=== PATIENT | female | born 1965 | race Caucasian/White ===

== ENCOUNTER 2020-04-05 01:31 | Outpatient (CLI) | payer OTHER, SELFPAY ==
--- NOTE | 2020-04-05 | DI.MAMMO_ITS ---
EXAM: MAMMO SCREENING CLINICAL HISTORY: SCREENING, [id number] TECHNIQUE: Mammograms were interpreted according to the usual protocol including computer analysis w [employer] CAD system, tomosynthesis and C-view imaging. COMPARISON: 2017 FINDINGS: The breasts are composed of heterogeneously dense fibroglandular densities, Breast Density category C . No suspicious masses or suspicious microcalcifications are seen. No skin thickening or abnormal axillary lymph nodes are seen. There has been no significant change from prior exams. IMPRESSION: BI-RADS Category 1, Negative mammogram. Yearly screening mammography is recommended. Breast Density Category C, heterogeneously Dense. The mammogram demonstrates the patient's breast tissue is dense. Dense breast tissue is very common a nd is not abnormal but dense breast tissue can make it harder to find cancer on a mammogram. Also, de nse breast tissue may increase breast cancer risk. This information about the result of the mammogram report was provided to the patient to raise their awareness. Use this report when you speak with the patient about their risks for breast cancer, which includes their family history. At that time, you may recommend additional screening tests (Ultrasound or MRI) as they might be useful based on their r isk. A negative radiographic report should not delay biopsy if a dominant or clinically suspicious mass is present. Up to ten percent of cancers are not identified on mammography. A negative report may reinforce clinical impression. Adenosis and dense breasts may obscure an underlying neoplasm. False positive reports average 6 to 10%.
== END 2020-04-05 01:51 ==
PROVIDERS: Visit Provider Internal Medicine
DX: Z12.31 Encounter for screening mammogram for malignant neoplasm of breast (principal)
CPT/HCPCS: 77063; 77067

== ENCOUNTER 2021-02-24 09:57 | Emergency (ER) | payer OTHER, SELFPAY ==
--- NOTE | 2021-02-24 10:00 | RT.EKG_ITS ---
APPROVED REPORT Exam: Resting ECG Reason for Exam: chest pain Patient Location: E HR:64 bpm ECG Measurements Heart Rate 64 AXIS IA 147 P 64 QRSd 68 QRS 43 QT 420 T 37 QTc 432 Conclusion Sinus rhythm...normal P axis, V-rate 60- 99 Probable left atrial enlargement...P >50mS, <-0.10mV V1 Low voltage, precordial leads...precordial leads <1.0mV
[2021-02-24 10:02] VITALS: BP 156/93; PULSE 59; RESP 18; TEMP 36.6; O2SAT 100
--- NOTE | 2021-02-24 10:15 | DI.RAD_ITS ---
Exam(s) XR PORTABLE CHEST AP EXAM: XR PORTABLE CHEST AP CLINICAL HISTORY: chest pain, PUI TECHNIQUE: 2D digital imaging was performed. COMPARISON: No exams were available for comparison FINDINGS: LUNGS: Question basilar opacities.. No pleural abnormality seen. HEART: Normal. MEDIASTINUM: Normal. BONES: Unremarkable. IMPRESSION: Question of basilar infiltrates. DATA REPOSITORY: RADIATION DOSE DELIVERED:
--- NOTE | 2021-02-24 10:40 | ED.GENADUL_ITS ---
Discharge Plan Disposition Patient Disposition: HOME Condition: Stable Discharge Details Clinical Impression: Pneumonia Primary Care Provider: None,None ED Provider: Allan Wolf Home Meds and New Rx's Prescriptions: New doxycycline hyclate 100 mg capsule 100 mg PO BID Qty: 9 RF: 0 Continued esterified estrogens 0.3 mg Tablet 0.3 mg PO DAILY RF: 0 Discharge Instructions Instructions: Pneumonia (ED), COVID-19 (Coronavirus Disease 2019) (ED), Instructions for Self Monitoring Oxygen Saturation Additional Instructions: Chest x-ray with performed today and is concerning for mild developing multifocal pneumonia. This may be caused by a bacteria or virus including covid. A covid test was performed today and results are pending. You may have COVID- 19. Please maintain home isolation until results are available. You may log into your [employer] portal to check for result. Results should be available within a couple days. Please drink plenty of fluids to stay hydrated. Allow for plenty of rest. Take the antibiotic as prescribed. Your initial dose was given today in the emergency department. Your next dose should be this evening. You are given a finger pulse oximeter today. Monitor your pulse ox according to instructions. Please return to the emergency department if your oxygen drops below 90% consistently. Please contact your primary care physician to arrange follow-up. Call on Friday. Return to the ER immediately for any worsening or new concerning symptoms. Medical Decision Making [id number] --55-year-old female here with cough and chills, rhinorrhea and sore throat as well as headache right-sided pleuritic chest discomfort. Patient is satura ting well in no respiratory distress. Hemodynamically stable. Concern for community-acquired pneumonia versus viral respiratory illness including Covid. I will send Covid test and obtain chest x-ray. Consider pulmonary embolism: Low risk by Wells criteria, will obtain D-dimer. Screening EKG with performed by nursing reviewed and interpreted by me: Nondiagnostic, please see report. Patient was provided naproxen, as prescribed for home use, for discomfort. 1200 --labs reviewed and nondiagnostic. D-dimer negative. Chest x-ray reviewed and interpreted by radiology: Patchy mild bibasilar o pacities, may represent developing multifocal pneumonia. Hyperexpansion of the lungs can be seen with COPD. Unclear if this is COVID-19 or bacterial or other viral process. Plan to treat with doxycycline to cover for community-acquired pneumonia. Covid test is pending. I will have her maintain home isolation and follow-up with primary care physician. Usual customary discharge instructions reviewed the patient. HPI General Mode of arrival: ambulatory . Date/Time Provider Initiated Documentation: 02/24/21 09:59 . Limitations to Documentation: no limitations . Information obtained by: patient . HPI Narrative: 55-year-old female presents with chief complaint of respiratory illness. Patient notes she has had chills and cough since last night. Feels achy. Symptoms are severe. No modifiers. She does have associated moderate headache. She also notes intermittent right- sided chest discomfort with deep breathing. No leg spine or calf pain. Patient is fully vaccinated against Covid with second shot given in May. She has not received booster. Related Data Home Medications Medication Instructions Recorded Confirmed doxycycline hyclate 100 mg PO BID #9 cap 02/24/21 esterified estrogens 0.3 mg PO DAILY 02/24/21 02/24/21 Previous Rx's Medication Instructions Recorded doxycycline hyclate 100 mg PO BID #9 cap 02/24/21 Allergies Allergy/AdvReac Type Severity Reaction Status Date / Time pregabalin [From Lyrica] AdvReac Psychosis Unverified 02/24/21 10:06 General Stated Complaint: RespSymp BETITO: 3 Review of Systems All systems reviewed & are unremarkable except as noted in HPI and below Constitutional Constitutional: Denies fever(s) Cardiovascular Cardiovascular: Reports as per HPI Respiratory Respiratory: Reports as per HPI PFSH All Active Problems (Updated 02/24/21 @ 12:04 by Allan Wolf MD) Pneumonia (Acute) Social History Smoking/Tobacco Use Status: Never Smoking risk assessment performed?: Yes Alcohol Intake: current Alcohol Intake frequency: 0-2 drinks per day Drug use: Never Substance use type: does not use Do you feel safe at home: Yes Do you feel safe in your relationship?: Yes Exam Const General: cooperative and no acute distress HENMT Mouth: moist mucous membranes Eyes Conjunctivae: normal conjunctivae Sclera: normal sclerae Neck Neck: trachea midline and supple Resp Effort & Inspection: normal respiratory effort, able to speak in complete sentences, cough and not tachypneic Auscultation: clear to auscultation bilaterally, no rales, no rhonchi and no wheezes Cardio Rate: regular rate and not tachycardic Rhythm: regular rhythm GI Palpation: soft, not firm, no guarding, no masses, not rigid and nontender Skin General skin exam: no rashes or lesions noted Neuro General: patient alert, patient awake, patient oriented x3 and tone normal Extrem General: no calf tenderness and no edema Psych Appearance: grossly normal Mental Status: mental status grossly normal Speech and Movement: speech and movement normal Course Vital Signs Vital signs: Vital Signs Temperature 36.6 C 02/24/21 10:02 Pulse 59 L 02/24/21 10:02 Respiratory Rate 18 02/24/21 10:02 Blood Pressure 156/93 H 02/24/21 10:02 Pulse Oximetry 100 02/24/21 10:02 Temperature 36.6 C 02/24/21 10:02 Temperature Source Temporal Artery Scan 02/24/21 10:02 Pulse 59 L 02/24/21 10:02 Respiratory Rate 18 02/24/21 10:02 Respiratory Effort Non-Labored 02/24/21 10:07 Blood Pressure 156/93 H 02/24/21 10:02 Blood Pressure Position Sitting 02/24/21 10:02 Pulse Oximetry 100 02/24/21 10:02 Oxygen Delivery Method Room Air 02/24/21 10:02 Oxygen Flow Rate 0 02/24/21 10:02 Lab/Test Results Lab/Test Results: 02/24/21 10:15 Tonsil - Not Specified Group A Streptococcus Culture - Pending POC Strep Test-CARLOS(Rapid) Start: 02/24/21 10:22 Freq: Status: Active Protocol: Document 02/24/21 10:28 TB (Rec: 02/24/21 10:28 TB [id number]) Strep test-CARLOS(Rapid)-POC POC-Strep test-CARLOS (Rapid) Negative POC-Strep test-CARLOS (Rapid) Negative
[2021-02-24] MEDS: Naproxen 250 MG TAB (10:46)
[2021-02-24 10:58] LABS: ALT 14 U/L (14-59); AST 11 U/L (15-37); Albumin 3.8 g/dL (3.4-5.0); Alkaline Phosphatase 67 U/L (46-116); Anion Gap 6.9 mmol/L (3-11); BUN 18 mg/dL (7-18); Bilirubin, Total 0.7 mg/dL (0.2-1.0); CO2 27.1 mmol/L (21.0-32.0); CREATININE 0.8 mg/dL (0.55-1.02); Calcium 8.7 mg/dL (8.5-10.1); Chloride 107 mmol/L (98-107); Glucose 99 mg/dL (74-106); Potassium 3.9 mmol/L (3.5-5.1); Sodium 141 mmol/L (136-145); Troponin I < 50 ng/L (<or=60)
[2021-02-24 11:01] LABS: Abs Immature Grans 0.01 10^3/uL (0.0-0.06); Absolute Basophil Count 0.02 10^3/uL (0.0-0.2); Absolute Eosinophil Count 0.19 10^3/uL (0.0-0.7); Absolute Lymphocyte Count 1.26 10^3/uL (1.2-3.4); Absolute Monocyte Count 0.57 10^3/uL (0.1-0.8); Absolute Neutrophil Count 4.97 10^3/uL (1.2-6.7); Basophils % 0.3; Eosinophils % 2.7; HCT 41.5 % (36.0-46.0); HGB 13.1 g/dL (11.2-15.7); Immature Grans % 0.1; Lymphocytes % 17.9; MCH 28.9 pg (27.0-33.0); MCHC 31.6 % (32.0-36.0); MCV 91.4 fL (80-95); Monocytes % 8.1; Neutrophils % 70.9; Nucleated RBC 0 %; Platelet Count 216 10^3/uL (130-400); RBC 4.54 10^6/uL (3.93-5.22); RDW 13.2 % (11.7-14.6); RDW-SD 44.4 fL; WBC 7.02 10^3/uL (4.4-10.8)
[2021-02-24 11:33] LABS: D-Dimer 156 ng/mlFEU (<500)
--- NOTE | 2021-02-24 11:46 | DI.VRAD_ITS ---
PROCEDURE INFORMATION: Exam: XR Chest Exam date and time: 02/24/2021 10:29 AM Age: 55 years old Clinical indication: Other: Chest pain, piu TECHNIQUE: Imaging protocol: XR of the chest. Views: 1 view. COMPARISON: No relevant prior studies available. FINDINGS: Lungs: Lungs are hyperinflated. Subtle patchy bibasilar opacities. Pleural spaces: No pleural effusion or pneumothorax. Heart/Mediastinum: Heart size is normal. Bones/joints: Mild degenerative changes of the shoulders and spine without acute osseous findings. IMPRESSION: 1. Patchy mild bibasilar opacities, may represent developing multifocal pneumonia. 2. Hyperexpansion the lungs can be seen with COPD. Dictated and Authenticated by: Zahraa Pascal MD. Ordering:CATALINO Lemus MD
[2021-02-24] MEDS: Doxycycline Hyclate 100 MG CAP PO (12:09)
[2021-02-24 12:10] VITALS: BP 136/82; PULSE 59; RESP 18; O2SAT 100
[2021-02-25 10:48] LABS: COVID-19 RT-PCR UVMMC Result Negative (Negative)
--- NOTE | 2021-02-26 17:34 | NUR.NOTE ---
negative covid result relayed to pt's via phone. Nursing Note:
== END 2021-02-24 12:22 | disposition home or self-care (01) ==
PROVIDERS: Emergency Provider Student in an Organized Health Care Education/Training Program
DX: J18.9 Pneumonia, unspecified organism (principal); R07.9 Chest pain, unspecified; R51.9 Headache, unspecified
CPT/HCPCS: 36415; 80053; 87880; 93005; 99284; U0003; 71045; 84484; 85025; 85379; 87081; 93010

== ENCOUNTER 2021-03-17 13:45 | Emergency (ER) | payer SELFPAY ==
[2021-03-17 14:07] VITALS: BP 135/78; PULSE 60; RESP 16; TEMP 36.6; O2SAT 99
--- NOTE | 2021-03-17 14:30 | DI.US_ITS ---
Exam(s) US LOWER EXTREMITY VENOUS RT EXAM: US LOWER EXTREMITY VENOUS RT CLINICAL HISTORY: R leg swelling, pain, + Covid. TECHNIQUE: Lower extremity venous ultrasound performed using grayscale, color-flow, and spectral Do ppler analysis. COMPARISON: No exams were available for comparison FINDINGS: The common femoral, femoral and popliteal veins demonstrate normal compressibility, augmentation, and color Doppler. The posterior tibial veins are patent. No saphenous vein thrombosis or other superfi cial venous thrombosis is seen. No hematoma or Townsend's cyst is seen. IMPRESSION: Negative lower extremity ultrasound. No evidence of DVT. DATA REPOSITORY:
--- NOTE | 2021-03-17 14:35 | ED.GENADUL_ITS ---
Discharge Plan Disposition Patient Disposition: HOME Condition: Improving Discharge Details Clinical Impression: Strain of calf muscle Primary Care Provider: None,None ED Provider: Tejas Johnson Home Meds and New Rx's Prescriptions: Continued esterified estrogens 0.3 mg Tablet 0.3 mg PO DAILY RF: 0 acetaminophen [Acetaminophen Extra Strength] 500 mg Tablet 1,000 mg PO QID PRNRF: 0 Discharge Instructions Instructions: Muscle Strain (ED) Additional Instructions: Home to rest this evening. May apply warm and moist heat to area speed healing. May use Tylenol and ibuprofen as needed for pain or discomfort. Return if you develop chest pain, difficulty breathing, increasing leg discomfort, or any other acute concerns. Medical Decision Making 55-year-old female presents from home. She was diagnosed with pneumonia and subsequently COVID-19 towards the third week of February. She had persistent cough and over the past few days noticed right lower extremity pain and mild swelling. [facility] On review of systems patient will note some discomfort with deep inspiration, particularly on the left side of the chest. She arrives to the ER with reassuring vital signs. Her right leg does note 1 cm greater diameter around the calf than left. Patient's differential diagnosis includes DVT, PE, persistent COVID-19 symptoms. IV access established and patient referred for laboratory testing and right lower extremity ultrasound. The ultrasound does not show evidence of DVT. Laboratories: White blood cell count 6, hematocrit 43, platelets 229. D-dimer 181. Sodium 142 potassium 4.2, chloride 106, bicarb 27, BUN 17, creatinine 0.8. HPI General Mode of arrival: ambulatory . Date/Time Provider Initiated Documentation: 03/17/21 13:58 . Limitations to Documentation: no limitations . History of Present Illness 55 year old F presents to the emergency department with the chief complaint of Right leg swelling and minimal pain,persistent cough , covid, described as mild, and is localized to the right and lower extremity. Patient reports no radiation. Patient started experiencing this day(s) and it has been constant. No relieving factors improve symptom(s), No exacerbating factors reported . Patient did receive the following treatments prior to arrival, none Related Data Home Medications Medication Instructions Recorded Confirmed esterified estrogens 0.3 mg PO DAILY 02/24/21 03/17/21 acetaminophen [Acetaminophen Extra 1,000 mg PO QID PRN 03/17/21 03/17/21 Strength] Allergies Allergy/AdvReac Type Severity Reaction Status Date / Time pregabalin [From Lyrica] AdvReac Psychosis Unverified 03/17/21 14:17 General Stated Complaint: Vascular BETITO: 3 Review of Systems Narrative: No fever. Has persistent cough. Minimal left-sided chest discomfort with deep inspiration. Sputum production. Eating and drinking within normal limits. 8 systems reviewed and otherwise negative PFSH All Active Problems (Updated 03/17/21 @ 16:08 by Tejas Johnson MD) Pneumonia (Acute) Strain of calf muscle (Acute) Social History Smoking/Tobacco Use Status: Former Tobacco Use Smoking risk assessment performed?: Yes Alcohol Intake: current Alcohol Intake frequency: 0-2 drinks per day Drug use: Never Substance use type: does not use Do you feel safe at home: Yes Do you feel safe in your relationship?: Yes Exam Narrative Exam Narrative: GEN: awake, alert, oriented 3. Pleasant, well groomed, interactive. HEAD: Normocephalic, atraumatic ENT: Mucous membranes moist, oropharynx unremarkable, External ear exam unremarkable EYES: PERRL, EOMI NECK: Full ROM, no FRANCHESCA, no menigismus CHEST/RESP: Nontender, clear to auscultation bilateral, no wheeze/rhonchi/rales CARDIOVASCULAR: RRR, no murmur, rub janelle. 2+ Rad pulse bilateral ABDOMEN: Soft, nontender, no mass. +Bowel sounds EXT: Full ROM, trace pain right calf posteriorly. 1 cm greater diameter of right calf versus left Neuro: Grossly normal neurologic exam, conversant, interactive. Psych: Speech fluent, thoughts congruent, affect normal Course Vital Signs Vital signs: Vital Signs Temperature 36.6 C 03/17/21 14:07 Pulse 60 03/17/21 14:07 Respiratory Rate 16 03/17/21 14:07 Blood Pressure 135/78 03/17/21 14:07 Pulse Oximetry 99 03/17/21 14:07 Temperature 36.6 C 03/17/21 14:07 Temperature Source Temporal Artery Scan 03/17/21 14:07 Pulse 60 03/17/21 14:07 Respiratory Rate 16 03/17/21 14:07 Respiratory Effort Non-Labored 03/17/21 14:15 Blood Pressure 135/78 03/17/21 14:07 Blood Pressure Position Sitting 03/17/21 14:07 Pulse Oximetry 99 03/17/21 14:07 Oxygen Delivery Method Room Air 03/17/21 14:07 Oxygen Flow Rate 0 03/17/21 14:07 Pain Level 0 03/17/21 14:07 PAWSS Have you Been Recently Intoxicated or Drunk Within the Last 30 days?: No Have you Ever Experienced Previous Episodes of Alcohol Withdrawal?: No Have you ever Experienced Withdrawal Seizures?: No Have you ever Experienced Delirium Tremens(DT)s?: No Have you ever undergone Alcohol Rehabilitation Treatment (i.e, inpt ot outpatient treatment programs)?: No Have you ever Experienced Blackouts?: No Have you ever Combined Alcohol with other Downers within the last 90 days?: No Have you ever Combined Alcohol with any other Substance of Abuse during the last 90 days?: No Positive Blood Alcohol level on Presentation? [PCS.BAL]: No Evidence of Increased Autonomic Activity (i.e. HR>120, tremor, sweating, agitation, nausea)?: No Result: 0
--- NOTE | 2021-03-17 15:27 | DI.VRAD_ITS ---
PROCEDURE INFORMATION: Exam: US Duplex Right Lower Extremity Veins, Limited Exam date and time: 03/17/2021 2:35 PM Age: 55 years old Clinical indication: Other: RT leg heaviness; Patient HX: Covid + TECHNIQUE: Imaging protocol: Real-time Duplex ultrasound of the Right Lower Extremity with 2-D leary scale, color Doppler flow and spectral waveform analysis with image documentation. Limited exam was focused on the right lower extremity veins. COMPARISON: No relevant images were readily available for comparison purposes. FINDINGS: Vasculature: No evidence of thrombus. Soft tissues: Unremarkable. IMPRESSION: No evidence of deep vein thrombosis. Dictated and Authenticated by: Brady Calderon MD. Ordering:RYAN Lazaro MD
[2021-03-17 15:32] LABS: Abs Immature Grans 0.02 10^3/uL (0.0-0.06); Absolute Basophil Count 0.02 10^3/uL (0.0-0.2); Absolute Eosinophil Count 0.18 10^3/uL (0.0-0.7); Absolute Lymphocyte Count 2.18 10^3/uL (1.2-3.4); Absolute Monocyte Count 0.48 10^3/uL (0.1-0.8); Absolute Neutrophil Count 3.16 10^3/uL (1.2-6.7); Basophils % 0.3; HCT 43.6 % (36.0-46.0); Immature Grans % 0.3; Lymphocytes % 36.1; MCH 28.7 pg (27.0-33.0); MCHC 32.1 % (32.0-36.0); MCV 89.3 fL (80-95); MPV 10.6 fL (8.0-11.0); Monocytes % 7.9; Neutrophils % 52.4; Nucleated RBC 0 %; Platelet Count 229 10^3/uL (130-400); RBC 4.88 10^6/uL (3.93-5.22); RDW 12.9 % (11.7-14.6); RDW-SD 42.4 fL; WBC 6.04 10^3/uL (4.4-10.8)
[2021-03-17 15:53] LABS: ALT 17 U/L (14-59); AST 14 U/L (15-37); Alkaline Phosphatase 73 U/L (46-116); Anion Gap 8.4 mmol/L (3-11); BUN 17 mg/dL (7-18); Bilirubin, Total 0.5 mg/dL (0.2-1.0); CO2 27.6 mmol/L (21.0-32.0); CREATININE 0.8 mg/dL (0.55-1.02); Calcium 9.1 mg/dL (8.5-10.1); Chloride 106 mmol/L (98-107); Glucose 85 mg/dL (74-106); Potassium 4.2 mmol/L (3.5-5.1); Sodium 142 mmol/L (136-145); Total Protein 7.5 g/dL (6.4-8.2)
[2021-03-17 16:01] LABS: D-Dimer 181 ng/mlFEU (<500)
[2021-03-17 16:17] VITALS: BP 135/78; PULSE 70; RESP 16; O2SAT 100
== END 2021-03-17 16:23 | disposition home or self-care (01) ==
PROVIDERS: Emergency Provider Emergency Medicine
DX: S86.811A Strain of other muscle(s) and tendon(s) at lower leg level, right leg, initial encounter (principal); M79.604 Pain in right leg; X58.XXXA Exposure to other specified factors, initial encounter; U07.1 COVID-19; R22.41 Localized swelling, mass and lump, right lower limb
CPT/HCPCS: 80053; 99284; 85025; 85379; 93971; 99283

== ENCOUNTER 2021-04-12 01:48 | Outpatient (CLI) | payer OTHER, SELFPAY ==
--- NOTE | 2021-04-12 10:00 | DI.MAMMO_ITS ---
Exam(s) MAMMO SCREENING EXAM: MAMMO SCREENING CLINICAL HISTORY: SCREENING, [id number] TECHNIQUE: Mammograms were interpreted according to the usual protocol including computer analysis w [employer] CAD system, tomosynthesis and C-view imaging. COMPARISON: FINDINGS: The breasts are heterogeneously dense. No dominant mass or clumped microcalcification is identified in either breast. The current examination is compared with previous studies including March 2020 a nd there has been no gross interval change in appearance in comparison with prior examinations. IMPRESSION: No specific evidence of malignancy at this time. Routine screening examinations are suggested at yea rly intervals in this age group according to the ACS ACR guidelines. BI-RADS Category 1 - Negative Breast Density - Category C - Heterogeneously dense
== END 2021-04-12 02:08 ==
PROVIDERS: Visit Provider Internal Medicine
DX: Z12.31 Encounter for screening mammogram for malignant neoplasm of breast (principal); R92.8 Other abnormal and inconclusive findings on diagnostic imaging of breast
CPT/HCPCS: 77063; 77067

== ENCOUNTER 2023-10-11 19:06 | Emergency (ER) | payer OTHER, SELFPAY ==
[2023-10-11 19:14] VITALS: BP 141/90; PULSE 89; RESP 14; TEMP 36.7; O2SAT 97
--- NOTE | 2023-10-11 20:30 | DI.CT_ITS ---
Exam(s) CT ABDOMEN PELVIS W EXAM: CT ABDOMEN PELVIS W CLINICAL HISTORY: abd pain, periumblical TTP with vol guarding. TECHNIQUE: Imaging Protocol: Axial computed tomography images with coronal and sagittal reformatted images were created and reviewed CONTRAST MATERIAL: Intravenous: Omnipaque-350 100cc Oral: None COMPARISON: No exams were available for comparison FINDINGS: VISUALIZED LUNG BASES: No nodules nor pleural effusions evident. ABDOMEN: There is no ascites. LIVER: There are 3 small focal hypodensities all measuring approximately 5 mm, benign-appearing and e ither small cysts or hemangiomas. There are no dilated intrahepatic ducts. GALLBLADDER/BILIARY: No obvious gallbladder pathology. CBD is not dilated. PANCREAS: No evidence of pancreatic mass nor dilatation of the pancreatic duct. SPLEEN: Spleen is not enlarged. No obvious intrasplenic lesions. Splenic and portal veins are paten t. ADRENALS: There are no significant adrenal masses. KIDNEYS:No cysts evident. No solid renal masses. No calculi nor hydronephrosis.. ABDOMINAL AORTA: Calcified but not enlarged. Common iliac arteries also calcified but not enlarged. LYMPH NODES:There is no retroperitoneal nor paraaortic adenopathy. ABDOMINAL WALL: No evidence of significant anterior abdominal wall nor inguinal hernia. GI: Moderate amount of retained fecal material in the colon and there is significant distension of th e rectum to 7.5 cm and circumferential cathy rectal fat stranding noted. PELVIS: GI: No evidence of appendicitis.No evidence of sigmoid diverticulitis. LYMPH NODES: There is no intrapelvic nor inguinal adenopathy. REPRODUCTIVE: Normal size uterus. No abnormal adnexal masses. URINARY BLADDER: No calculi nor obvious masses evident OSSEOUS: No fractures and no significant osseous lesions. IMPRESSION: 1. There is a prominent amount of fecal material in the distal sigmoid and rectum with the rectum dis tended to 7.5 cm. There is also perirectal fat stranding which raises concern for stercoral proctiti s. Abundant fecal material throughout the colon above this level is probably related to the findings at the rectum level. No evidence of significant diverticular disease. No evidence of appendicitis. 2. No evidence of small-bowel obstruction, free air, nor abscess. 3. 4. RADIATION DOSE DELIVERED: Total DLP DATA REPOSITORY: All CT scans at this facility are submitted to the National Radiology Data Registry (NRDR) Dose Index Registry (DIR) with the [employer] (ACR). RADIATION OPTIMIZATION: All CT scans at this facility use at least one of these dose optimization te chniques: automated exposure control; mA and/or kV adjustment per patient size (includes targeted exa ms where dose is matched to clinical indication); or iterative reconstruction.
--- NOTE | 2023-10-11 20:45 | W.ED.GENAD ---
Discharge Plan Disposition Patient Disposition: Home Condition: Good Discharge Details Clinical Impression: Constipation Primary Care Provider: [facility] ED Provider: Sherine Swartz Home Meds and New Rx's Prescriptions: Continued acetaminophen [Acetaminophen Extra Strength] 500 mg Tablet 1,000 mg PO QID PRN naproxen 500 mg tablet 500 mg PO BID cyanocobalamin (vitamin B-12) [Vitamin B-12] 1,000 mcg tablet 1,000 mcg PO QDAY vitamin E 268 mg (400 unit) capsule 268 mg PO DAILY cholecalciferol (vitamin D3) [Vitamin D3] 50 mcg (2,000 unit) capsule 2,000 unit PO DAILY thiamine HCl (vitamin B1) 100 mg tablet 100 mg PO DAILY terbinafine HCl 250 mg tablet 250 mg PO DAILY triamcinolone acetonide 0.1 % ointment 1 applic TOPICAL DAILY bupropion HCl 300 mg tablet extended release 24 hr 150 mg PO DAILY dimethyl fumarate 120 mg capsule,delayed release(DR/EC) 120 mg PO DAILY Discontinued esterified estrogens 0.3 mg Tablet 0.3 mg PO DAILY Wegovy 2.4 mg/0.75 mL pen injector 0.25 mg subcut QWEEK Discharge Instructions Instructions: Constipation, Adult ED Additional Instructions: Stop taking wegovy as this can worsen constipation. Call your primary care doctor on Friday to schedule an appointment within the next 72 hours to followup on your visit here and to discuss a bowel regimen for you. Until you see your primary care doctor take the following over the counter medications: -Miralax 17g once a day -Magesium citrate once a day (follow the directions on the bottle) -Fleet saline enema once a day if needed Return to the emergency department for new or worsening symptoms including fever, rectal bleeding, worsening pain, or if you have any other concerns. Referrals: [facility] [Primary Care Provider] - [facility] General Mode of arrival: ambulatory. Date/Time Provider Initiated Documentation: 10/11/23 19:14. Limitations to Documentation: no limitations. Information obtained by: patient. HPI Narrative: 58yo F with MS presenting with abdominal pain and constipation. Last BM 5 days ago, normal. No BM since then; has tried colace, miralax x 2, and a rectal suppository without effect. Abdominal pain started 2 days ago and has been worsening, diffuse, crampy. Nausea especially when straining to have a bowel movement, no vomiting. Otherwise in her usual state of health with no fevers, chills, rash, or other concerns. Related Data Home Medications ?Medication ?Instructions ?Recorded ?Confirmed acetaminophen 500 mg tablet 1,000 mg PO QID PRN 03/17/21 10/11/23 (Acetaminophen Extra Strength) bupropion HCl 300 mg 24 hr tablet, 150 mg PO DAILY 10/11/23 10/11/23 extended release cholecalciferol (vitamin D3) 50 2,000 unit PO DAILY 10/11/23 10/11/23 mcg (2,000 unit) capsule (Vitamin D3) cyanocobalamin (vitamin B-12) 1,000 mcg PO QDAY 10/11/23 10/11/23 1,000 mcg tablet (Vitamin B-12) dimethyl fumarate 120 mg 120 mg PO DAILY 10/11/23 10/11/23 capsule,delayed release naproxen 500 mg tablet 500 mg PO BID 10/11/23 10/11/23 terbinafine HCl 250 mg tablet 250 mg PO DAILY 10/11/23 10/11/23 thiamine HCl (vitamin B1) 100 mg 100 mg PO DAILY 10/11/23 10/11/23 tablet triamcinolone acetonide 0.1 % 1 applic topical DAILY 10/11/23 10/11/23 topical ointment vitamin E 268 mg (400 unit) capsule 268 mg PO DAILY 10/11/23 10/11/23 Allergies Allergy/AdvReac Type Severity Reaction Status Date / Time pregabalin (From Lyrica) AdvReac Psychosis Unverified 10/11/23 19:17 General Stated Complaint: Abd Prob BETITO: 3 Review of Systems Narrative: see hpi Exam Narrative Exam Narrative: General: Alert, well appearing, thin, in no acute distress. Head: Normocephalic, atraumatic Neck: Trachea midline, ?Neck supple. ENT: ?MMM.? Cardiac: ?No cyanosis. Resp: No respiratory distress. Speaking in full sentences. . Abd: ?Soft, non-distended, TTP in periumbilical region with voluntary guarding. No rebound tenderness. : ?No suprapubic tenderness. Extremities: ?No deformities.? No peripheral edema. Neurologic: GCS 15. ? Moves all extremities freely against gravity Course Vital Signs Vital signs: Vital Signs Temperature 36.7 C 10/11/23 19:14 Pulse 89 10/11/23 19:14 Respiratory Rate 14 10/11/23 19:14 Blood Pressure 141/90 H 10/11/23 19:14 Pulse Oximetry 97 10/11/23 19:14 Temperature 36.7 C 10/11/23 19:14 Temperature Source Skin 10/11/23 19:14 Pulse 89 10/11/23 19:14 Respiratory Rate 14 10/11/23 19:14 Respiratory Effort Normal, Non-Labored 10/11/23 20:12 Blood Pressure 141/90 H 10/11/23 19:14 Blood Pressure Position Sitting 10/11/23 19:14 Pulse Oximetry 97 10/11/23 19:14 Oxygen Delivery Method Room Air 10/11/23 19:14 Oxygen Flow Rate 0 10/11/23 19:14 Pain Level 4 10/11/23 19:14 Medical Decision Making 58yo F with MS presenting with abdominal pain and constipation. Last BM 5 days ago, normal. Abdominal pain started 2 days ago and has been worsening, diffuse, crampy. Nausea especially when straining to have a bowel movement, no vomiting. Vital signs reassuring on arrival, on exam she does have significant abdominal tenderness with voluntary guarding. Given this, will evaluate with CT . Zofran for nausea, additional miralax here. Labs reviewed as below, CBC reassuring with no leukocytosis or anemia, CMP with no significant abnormalities, lactate normal, TSH normal. CT independently reviewed, large stool burden with clear obstruction on my view, radiology read below. Some perirectal fat stranding without wall thickening noted, clinically less likely sterocoral colitis with well appearance and reassuring vitals signs/WBC/lactate. Findings discussed with patient and I recommended manual disimpaction; patient is very averse to this. She is willing to accept an enema at this time, initially requests to perform it herself (she has had never had one) but does agree to allow nursing to perform/assist. Fleet enema given, large volume of stool obtained. She does feel that there is still some present, continues to refuse manual disimpaction but is willing to have another enema. Will give soap-suds enema this time. Given significant volume of stool already obtained, would discharge home on assertive bowel regimen after enema even if not much more output. Discharge instructions written. Awaiting enema from pharamcy. On reassessment patient reports that she is feeling much better, no more abdominal pain. Signed out to oncoming physician, plan to discharge home if no complications from enema. A follow-on note will only be written if there is a change in patient status or condition. Imaging Data Radiologic Study: Imaging: CT Scan Radiologist's impression: IMPRESSION: Moderate retained fecal material in the cecum, ascending colon, and transverse colon. Descending and sigmoid colon largely well evacuated. Prominent retained fecal material in the distal sigmoid colon and rectum with distension of the rectum to 7.7 cm x 6.3 cm maximum axial dimension. Constipation suggested. Clinical correlation recommended. Perirectal fat stranding raises concern for superimposed acute stercoral proctitis although no definite rectal wall thickening is seen. Lab Data Lab results reviewed: Yes I reviewed the patient's lab results. Labs: Laboratory Tests Range/Units 10/11/23 21:16 WBC (4.4-10.8) 10^3/uL 5.95 RBC (3.93-5.22) 10^6/uL 4.81 Hgb (11.2-15.7) g/dL 13.8 Hct (36.0-46.0) % 42.3 MCV (80-95) fL 88 MCH (27.0-33.0) pg 28.7 MCHC (32.0-36.0) % 32.6 RDW (11.7-14.6) % 12.6 Plt Count (130-400) 10^3/uL 196 MPV (8.0-11.0) fL 10.7 Immature Gran % % 0.3 Neutrophils % % 85.0 Lymphocytes % % 8.2 Monocytes % % 5.5 Eosinophils % % 0.7 Basophils % % 0.3 Nucleated RBC % (0.0-0.3) % 0.0 Absolute Neutrophils (1.2-6.7) 10^3/uL 5.05 Absolute Lymphocytes (1.2-3.4) 10^3/uL 0.49 L Absolute Monocytes (0.1-0.8) 10^3/uL 0.33 Absolute Eosinophils (0.0-0.7) 10^3/uL 0.04 Absolute Basophils (0.0-0.2) 10^3/uL 0.02 VBG Lactate (0.6-1.4) mmol/L 0.7 Sodium (136-145) mmol/L 142 Potassium (3.5-5.1) mmol/L 4.4 Chloride (98-107) mmol/L 106 Carbon Dioxide (21.0-32.0) mmol/L 27.5 Anion Gap (3-11) mmol/L 8.5 BUN (7-18) mg/dL 16 Creatinine (0.55-1.02) mg/dL 1.0 Est GFR (CKD-EPI 2020) (mL/min/1.73m2) 66.12 Glucose (74-106) mg/dL 98 Calcium (8.5-10.1) mg/dL 9.5 Total Bilirubin (0.2-1.0) mg/dL 0.94 AST (15-37) U/L 9 L ALT (14-59) U/L 15 Alkaline Phosphatase (46-116) U/L 55 Total Protein (6.4-8.2) g/dL 6.9 Albumin (3.4-5.0) g/dL 3.9 TSH (0.36-3.74) uIU/mL 1.40 Quality:SDMO Health Related Social Needs: No Data to Display PFSH All Active Problems (Updated 10/11/23 @ 23:39 by Sherine Swartz MD) Constipation (Acute) Pneumonia (Acute) Social History Smoking/Tobacco Use Status: Former Tobacco Use Smoking risk assessment performed?: Yes Alcohol Intake: current Alcohol Intake frequency: 0-2 drinks per day Drug use: Never Substance use type: does not use Do you feel safe at home: Yes Do you feel safe in your relationship?: Yes
[2023-10-11] MEDS: Normal Saline - Diluent 50 ML VIAL IJ (21:19)
[2023-10-11] MEDS: Omnipaque 350 MG/ML 100 ML BTL IJ (21:20)
[2023-10-11 21:28] LABS: Abs Immature Grans 0.02 10^3/uL (0.0-0.06); Absolute Basophil Count 0.02 10^3/uL (0.0-0.2); Absolute Eosinophil Count 0.04 10^3/uL (0.0-0.7); Absolute Lymphocyte Count 0.49 10^3/uL (1.2-3.4); Absolute Monocyte Count 0.33 10^3/uL (0.1-0.8); Absolute Neutrophil Count 5.05 10^3/uL (1.2-6.7); Basophils % 0.3 %; Eosinophils % 0.7 %; HCT 42.3 % (36.0-46.0); HGB 13.8 g/dL (11.2-15.7); Immature Grans % 0.3 %; Lymphocytes % 8.2 %; MCH 28.7 pg (27.0-33.0); MCHC 32.6 % (32.0-36.0); MCV 88 fL (80-95); MPV 10.7 fL (8.0-11.0); Monocytes % 5.5 %; Platelet Count 196 10^3/uL (130-400); RBC 4.81 10^6/uL (3.93-5.22); RDW 12.6 % (11.7-14.6); RDW-SD 41.1 fL; WBC 5.95 10^3/uL (4.4-10.8)
[2023-10-11 21:40] LABS: Lactate 0.7 mmol/L (0.6-1.4)
[2023-10-11 21:51] LABS: ALT 15 U/L (14-59); AST 9 U/L (15-37); Albumin 3.9 g/dL (3.4-5.0); Alkaline Phosphatase 55 U/L (46-116); Anion Gap 8.5 mmol/L (3-11); BUN 16 mg/dL (7-18); Bilirubin, Total 0.94 mg/dL (0.2-1.0); CO2 27.5 mmol/L (21.0-32.0); Calcium 9.5 mg/dL (8.5-10.1); Chloride 106 mmol/L (98-107); Estimated GFR 66.12 (mL/min/1.73m2); Glucose 98 mg/dL (74-106); Potassium 4.4 mmol/L (3.5-5.1); Sodium 142 mmol/L (136-145); Total Protein 6.9 g/dL (6.4-8.2)
[2023-10-11] MEDS: Ondansetron 4 MG/2 ML VIAL IVP (21:55)
[2023-10-11] MEDS: Polyethylene Glycol 3350 17 GM PACKET PO (21:56)
--- NOTE | 2023-10-11 22:34 | DI.VRAD_ITS ---
PROCEDURE INFORMATION: Exam: CT Abdomen And Pelvis With Contrast Exam date and time: 10/11/2023 9:18 PM Age: 58 years old Clinical indication: Other: Abd pain, periumbilical ttp wit vol guarding TECHNIQUE: Imaging protocol: Computed tomography of the abdomen and pelvis with contrast. Contrast material: 350; Contrast volume: 100 ml; Contrast route: INTRAVENOUS (IV); COMPARISON: CR XR PORTABLE CHEST AP 02/24/2021 10:52 AM FINDINGS: Lungs: Lung bases clear. Liver: Small indeterminate hypoattenuating hepatic lesions, incompletely characterized but most likely small cysts and/or hemangiomas. Gallbladder and biliary ducts: Gallbladder partially distended. Layering intermediate density in the gallbladder, probably incompletely calcified stones, sludge, or artifact. Pancreas: Normal appearing pancreas. Spleen: Normal appearing spleen. Adrenal glands: Normal appearing adrenal glands. Kidneys and ureters: Normal appearing kidneys. No hydronephrosis. Stomach and bowel: No oral contrast. Stomach partially distended with fluid. No small bowel dilatation to suggest obstruction. Moderate retained fecal material in the cecum, ascending colon, and transverse colon. Descending and sigmoid colon largely well evacuated. Prominent retained fecal material in the distal sigmoid colon and rectum with distension of the rectum to 7.7 cm x 6.3 cm maximum axial dimension with perirectal fat stranding but no rectal wall thickening. Appendix: Normal appendix. Intraperitoneal space: No gross ascites or free air. Vasculature: Normal caliber abdominal aorta. Lymph nodes: No pathologically enlarged mesenteric, retroperitoneal, or pelvic sidewall lymph nodes. Urinary bladder: Urinary bladder partially collapsed but grossly unremarkable, as seen. Reproductive: Anteverted uterus, normal in size. Ovaries partially obscured and not well evaluated but normal in size. Bones/joints: No acute fracture seen among the bones of the abdomen or pelvis. Spinal degenerative change with small Schmorl's nodes at multiple levels. Soft tissues: Tiny fat-containing ventral hernia at the umbilicus, doubtful clinical significance. IMPRESSION: Moderate retained fecal material in the cecum, ascending colon, and transverse colon. Descending and sigmoid colon largely well evacuated. Prominent retained fecal material in the distal sigmoid colon and rectum with distension of the rectum to 7.7 cm x 6.3 cm maximum axial dimension. Constipation suggested. Clinical correlation recommended. Perirectal fat stranding raises concern for superimposed acute stercoral proctitis although no definite rectal wall thickening is seen. Dictated and Authenticated by: Jw Betancourt MD. Ordering:MAXINE Basurto MD
[2023-10-11] MEDS: Na Phosphate Enema-Adult 133 ML BTL PR (23:01)
[2023-10-12 00:43] VITALS: BP 114/82; PULSE 92; RESP 14; TEMP 36.9; O2SAT 97
== END 2023-10-12 01:05 | disposition home or self-care (01) ==
PROVIDERS: Emergency Provider Student in an Organized Health Care Education/Training Program
DX: K59.00 Constipation, unspecified (principal); G35 Multiple sclerosis; Z79.899 Other long term (current) drug therapy; Z87.891 Personal history of nicotine dependence
CPT/HCPCS: 80053; 96374; 99285; 74177; 83605; 84443; 85025; 99284; J2405; J3490